=== PATIENT | male | born 1975 | race Caucasian/White ===

== ENCOUNTER 2017-03-07 21:56 | Outpatient (CLI) | END 2017-03-07 21:57 | disposition short-term general hospital (02) | LOC: AMBL 21:56 | PROVIDERS: ATTEND Family Medicine | DX: S62.603B Fracture of unspecified phalanx of left middle finger, initial encounter for open fracture (principal); W32.0XXA Accidental handgun discharge, initial encounter ==

== ENCOUNTER 2017-08-12 21:17 | Emergency (ER) ==
[2017-08-12 21:27] VITALS: BP 115/74; TEMP 98.5; BMI 19.9
--- NOTE | 2017-08-12 21:50 | ED.PDOC ---
General ED Provider: Dr. KAREN HARRIS Chief Complaint: Shoulder Pain/Injury Stated Complaint: Been hurting in the left shoulder for couple months, says it all started since when he had surgery on the left middle finegr, Time Seen by Physician: 21:48 Mode of Arrival: Walk-In Information Source: Patient Primary Care Provider: KAREN HARRIS-[facility] [address] Nursing and Triage Documentation Reviewed and Agree: Yes Reviewed sepsis parameters & appropriate labs ordered?: No System Inflammatory Response Syndrome: Not Applicable Sepsis Protocol: For patient's 13 years and over: Temp is 96.8 and below OR 101 and greater Pulse >90 BPM Resp >20/minute Acutely Altered Mental Status Are patient's symptoms suggestive of a new infection, such as: -Pneumonia -Skin, Soft Tissue -Endocarditis -UTI -Bone, Joint Infection -Implantable Device -Acute Abdominal Infection -Wound Infection -Meningitis -Blood Stream Catheter Infection -Unknown Musculoskeletal Complaint Exam - Shoulder Pain Complaint/Exam Mechanism of Injury: Reports: No known trauma Symptoms Are: Still present Timing: Constant Initial Severity: Moderate Current Severity: Moderate Location: Reports: Discrete Character: Reports: Aching, Throbbing Alleviating: Reports: None Aggravating: Reports: Movement, Lifting, Flexion, Extension Associated Signs and Symptoms: Denies: Swelling, Redness, Bruising, Fever, Weakness, Numbness, Tingling Non-Orthopedic Risk Factors: Reports: None DVT Risk Factors: Reports: None Septic Arthritis Risk Factors: Reports: None Related Surgical History: Reports: None Limited Range of Motion: Present: Abduction, Adduction Differential Diagnoses: Closed Fracture, Rotator Cuff Injury, Sprain Review of Systems - Review Of Systems Constitutional: Reports: No symptoms Eyes: Reports: No symptoms Ears, Nose, Mouth, Throat: Reports: No symptoms Respiratory: Reports: No symptoms Cardiac: Reports: No symptoms GI: Reports: No symptoms : Reports: No symptoms Musculoskeletal: Reports: Joint pain Skin: Reports: No symptoms Neurological: Reports: No symptoms Endocrine: Reports: No symptoms Hematologic/Lymphatic: Reports: No symptoms All Other Systems: Reviewed and Negative Past Medical History - Past Medical History Previously Healthy: Yes Endocrine: Reports: None Cardiovascular: Reports: None Respiratory: Reports: None Hematological: Reports: None Gastrointestinal: Reports: None Genitourinary: Reports: None Neuro/Psych: Reports: None Musculoskeletal: Reports: None Cancer: Reports: None - Surgical History General Surgical History: Reports: Orthopedic, Other (right pneuomotjorax) - Family History Family History: Reports: None - Social History Smoking Status: Current every day smoker Hx Substance Use: Yes (alcohol) Alcohol Screening: Heavy - Immunizations Tetanus Shot up to Date: Yes (2016) Physical Exam - Physical Exam Appearance: Well-appearing, No pain distress, Well-nourished Eyes: SHELBY, EOMI, Conjunctiva clear ENT: Ears normal, Nose normal, Oropharynx normal Respiratory: Airway patent, Breath sounds clear, Breath sounds equal, Respirations nonlabored Cardiovascular: RRR, Pulses normal, No rub, No murmur GI/: Soft, Nontender, No masses, Bowel sounds normal, No Organomegaly Musculoskeletal: No edema, No calf tenderness, Limited ROM, Limited strength Skin: Warm, Dry, Normal color Neurological: Sensation intact, Motor intact, Reflexes intact, Cranial nerves intact, Alert, Oriented Psychiatric: Affect appropriate, Mood appropriate Interpretation - Radiology Interpretation Radiology Interpretation By: ED Physician Radiology Results: Negative Critical Care Note - Critical Care Note Total Time (mins): 15 Course - Course Orders, Labs, Meds: Orders Category Date Time Status SHOULDER, LEFT MIN 2V Stat RADS 08/12/17 21:48 Ordered Vital Signs: Temp Pulse Resp BP Pulse Ox 08/12/17 21:19 98.5 F 93 H 20 115/74 97 Departure - Departure Time of Disposition: 22:39 Disposition: HOME SELF-CARE Discharge Problem: Shoulder pain, left Qualifiers: Chronicity: chronic Qualified Code(s): M25.512 - Pain in left shoulder; G89.29 - Other chronic pain; G89.29 - Other chronic pain Instructions: Shoulder Sprain (ED) Condition: Stable Pt referred to PMD for follow-up: Yes IPMP verified?: No Additional Instructions: rest hot pack May need MRI as out patient Allergies/Adverse Reactions: Allergies morphine Allergy (Severe, Verified 08/12/17 21:27) rash/hives/hypotension coconut oil Allergy (Mild, Verified 08/12/17 21:27) hydrocodone Adverse Reaction (Verified 08/12/17 21:27) venom-honey bee [bee venom (honey bee)] Adverse Reaction (Verified 08/12/17 21: 27) Home Medications: Ambulatory Orders Bupropion HCl [Wellbutrin Sr] 150 mg PO BID 12/27/14 Ipratropium/Albuterol Sulfate [Combivent Respimat Inhal Carpenter] 4 gm IH Q4H PRN 08/12/17 Disposition Discussed With: Patient
--- NOTE | 2017-08-12 22:47 | DI ---
Exam: Shoulder three-view History: Shoulder pain Findings / impression: No acute bony or articular abnormalities. The glenohumeral joint and acromio clavicular joint appear normal. Negative exam.
== END 2017-08-12 23:15 | disposition home or self-care (01) ==
LOC: ED 21:17
DX: M25.512 Pain in left shoulder (principal); G89.29 Other chronic pain; F17.210 Nicotine dependence, cigarettes, uncomplicated
CPT/HCPCS: 99282

== ENCOUNTER 2017-08-17 12:04 | Outpatient (CLI) ==
--- NOTE | 2017-08-17 13:40 | MRI ---
EXAM: MRI left shoulder without contrast. HISTORY: Left shoulder pain. Problems with range of motion since nerve block put in arm 6 months ag o for surgery left finger.. TECHNIQUE: Using a local coil on a high field strength magnet multiplanar multisequence magnet reson ance imaging was performed of the left shoulder without intravenous or intra-articular gadolinium con trast. . COMPARISON: Three -view plain film examination left shoulder 08/12/2017. FINDINGS: A Type I I acromion. Coracoacromial ligament/arch intact without definitive thickening. Left acromioclavicular joint within normal limit in appearance. Deltoid musculature normal signal in tensity. Trace fluid subacromial/subdeltoid bursa. Muscle bulk of the rotator cuff shows some fatty infiltration /atrophy of the teres minor muscle. No acute muscle strain.. There is tendinosis over the supraspinatus insertion and critical zone. Ther e is additionally partial thickness articular sided rim rent tearing with involvement of at least 50% thickness of the cuff. This area measures approximate 18 mm AP. Some bursal sided fraying. I do n ot see a definitive full-thickness tear component. Posterior intact infraspinatus and teres minor te ndon fibers. Anterior intact subscapularis tendon fibers. The long head of the biceps tendon shows intact fibers located in expected position within the bicipital groove and within normal limit in sig nal intensity and morphology. The left humeral head within normal limit in morphology and seated. No left glenohumeral joint cente red subchondral bone marrow edema or bone erosions. Trace left glenohumeral joint effusion. Left gl enoid labrum grossly intact on this non-arthrographic examination.. Incidental note of a 6 mm rounde d sclerotic lesion showing decreased T1/T2 signal intensity over the proximal left humeral shaft. Th is corresponds to a focus on plain film radiographs 08/12/2017.. IMPRESSION: Supraspinatus tendinosis over the insertion and critical zone. Partial thickness rim re nt tearing with involvement of at least 50% thickness of the cuff. Some bursal sided fraying. No defi nitive full-thickness tear component. Trace fluid subacromial/subdeltoid bursa may reflect an overly ing degree bursitis and/or be sequelae of prior shoulder injection. Correlate clinically. Trace left glenohumeral joint effusion. Incidental note of a 6 mm sclerotic lesion over the proximal left humeral shaft with correlation on p karen film radiographs 08/12/2017. Question enostosis. Appearance however nonspecific. Evaluation should depe nd on clinical context (ie does the patient of a primary malignancy?). Recommend follow-up plain fi lm radiographs left shoulder 12 months.
== END 2017-08-17 12:05 | disposition home or self-care (01) ==
LOC: RAD 12:04
PROVIDERS: ATTEND Nurse Practitioner Family
DX: M25.512 Pain in left shoulder (principal)